=== PATIENT | female | born 1985 | race Caucasian/White ===

== ENCOUNTER → 2017-11-25 | Outpatient (CLI) | payer OTHER | END | disposition home or self-care (01) | LOC: MERGE 10:04 → CFH 10:04 | PROVIDERS: ATTEND Physician Assistant | DX: M25.511 Pain in right shoulder (principal) ==

== ENCOUNTER → 2018-05-01 | Outpatient (CLI) | payer OTHER ==
[2018-05-01 09:08] LABS: BASOPHILS # (AUTO) 0.02 x10^3/uL (0-0.1); BASOPHILS % (AUTO) 0 % (0-1); EOSINOPHILS # (AUTO) 0.04 x10^3/uL (0-0.4); EOSINOPHILS % (AUTO) 1 % (1-7); LYMPHOCYTES # (AUTO) 2.19 x10^3/uL (1-3.4); LYMPHOCYTES % (AUTO) 39 % (22-44); MD NO; MEAN CORPUSCULAR HEMOGLOBIN 29.5 pg (27.0-34.8); MEAN CORPUSCULAR HGB CONC 33.7 g/dL (32.4-35.8); MEAN CORPUSCULAR VOLUME 87.5 fL (80-100); MEAN PLATELET VOLUME 12.1 fL (7.4-10.4); MONOCYTES # (AUTO) 0.39 x10^3/uL (0.2-0.8); MONOCYTES % (AUTO) 7 % (2-9); NEUTROPHILS % (AUTO) 53 % (42-75); PLATELET COUNT 138 x10^3/uL (130-400); RED BLOOD COUNT 4.62 x10^6/uL (3.82-5.3); RED CELL DISTRIBUTION WIDTH 14.2 % (9.6-15.2)
[2018-05-01 09:26] LABS: ALANINE AMINOTRANSFERASE 19 U/L (12-78); ALBUMIN 3.8 g/dL (3.4-5.0); ANION GAP 6 mmol/L (5-15); CALCIUM 8.7 mg/dL (8.5-10.1); CHLORIDE 108 mmol/L (98-107); CHOLESTEROL, TOTAL 159 mg/dL (140-239); CREATININE 0.94 mg/dL (0.55-1.02); TRIGLYCERIDES 144 mg/dL (50-200); VLDL CHOLESTEROL 29 mg/dL (0-25)
[2018-05-01 09:28] LABS: ALKALINE PHOSPHATASE 56 U/L (45-117); BILIRUBIN,TOTAL 0.5 mg/dL (0.2-1.0); CHOL/HDL RATIO 2.4; HDL CHOL % 42 % (28-40); HDL CHOLESTEROL (DIRECT) 67 mg/dL (40-60); LDL CHOLESTEROL,CALCULATED 63 mg/dL (54-169); LDL/HDL RATIO 0.9 (0.5-3.0); TOTAL PROTEIN 7.5 g/dL (6.4-8.2)
== END | disposition home or self-care (01) ==
LOC: LAB 08:54
PROVIDERS: ATTEND Nurse Practitioner Family
DX: Z00.00 Encounter for general adult medical examination without abnormal findings (principal)
CPT/HCPCS: 36415; 80053; 80061; 82306; 85025

== ENCOUNTER → 2019-05-07 | Outpatient (CLI) | payer OTHER | END | disposition home or self-care (01) | LOC: CFH 16:04 | PROVIDERS: ATTEND Nurse Practitioner Family | DX: M54.16 Radiculopathy, lumbar region (principal); M54.5 Low back pain | CPT/HCPCS: 72148 ==

== ENCOUNTER → 2019-05-31 | Outpatient (CLI) | payer OTHER | END | disposition home or self-care (01) | LOC: LAB 10:08 | PROVIDERS: ATTEND Physician Assistant | DX: M24.151 Other articular cartilage disorders, right hip (principal) | CPT/HCPCS: 36415; 84703 ==

== ENCOUNTER → 2019-06-14 | Outpatient (CLI) | payer OTHER ==
[~2019-06-14] MED LIST: GADOTERATE 10 MMOL/20 ML VIAL ONE; LIDOCAINE-MPF 1%, 5ML ONE; OMNIPAQUE 300 MG/ML, 10ML VIAL ONE; ROPivacaine/PF 0.2%, 10 ML ONE
== END | disposition home or self-care (01) ==
LOC: RAD 07:37
PROVIDERS: ATTEND Physician Assistant
DX: M24.151 Other articular cartilage disorders, right hip (principal)
CPT/HCPCS: 73525; 73722; A9575; J2795; Q9967

== ENCOUNTER 2019-11-02 10:47 | Emergency (ER) | payer OTHER ==
[~2019-11-02] VITALS: Ht 167.6 cm; Wt 61.3 kg
[2019-11-02 10:49] VITALS: BP 145/87
--- NOTE | 2019-11-02 11:53 | NUR ---
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
--- NOTE | 2019-11-02 12:01 | NUR ---
PT C/O SKIN RASH X1 WEEK. RASH STARTED SMALL AND HAS PROGRESSIVELY INCREASED OVER TRUNK AND ARMS. PT USED NEW DETERGENT PRIOR, BUT HAS SINCE WASHED EVERYTHING AGAIN IN PREVIOUS DETERGENT. PT SEEN AT , PROVIDER AT DID NOT LOOK AT RASH, ONLY PRESCRIBED OINTMENT. AWAITING ORDERS.
--- NOTE | 2019-11-02 13:06 | NUR ---
PT RESTING COMFORTABLY ON RAIRELAINE. CANDELARION. AWAITING ORDERS AT THIS TIME.
--- NOTE | 2019-11-02 13:13 | NUR ---
AT BEDSIDE FOR ASSESSMENT.
[2019-11-02] MEDS ORDERED: FAMOTIDINE 20 MG TABLET PO ONE (13:30)
[2019-11-02] MEDS ORDERED: FAMOTIDINE 20 MG TABLET ONE (13:34)
--- NOTE | 2019-11-02 13:42 | NUR ---
MEDS ADMIN PER MAR
[2019-12-04] MEDS ORDERED: NONE PER PT (13:01)
== END 2019-11-02 13:55 | disposition home or self-care (01) ==
LOC: ED 11:30
DX: T78.40XA Allergy, unspecified, initial encounter (principal); R21 Rash and other nonspecific skin eruption; R20.0 Anesthesia of skin; X58.XXXA Exposure to other specified factors, initial encounter
CPT/HCPCS: 99283; J7512

== ENCOUNTER 2019-12-11 09:03 | Day surgery (SDC) | payer OTHER ==
[~2019-12-11] VITALS: Ht 167.6 cm; Wt 60.0 kg
[~2019-12-11 09:03] MED LIST changes: +EPINEPHRINE 1 MG/ML, 1ML ONE; -GADOTERATE 10 MMOL/20 ML VIAL ONE; -LIDOCAINE-MPF 1%, 5ML ONE; +NONE PER PT; -OMNIPAQUE 300 MG/ML, 10ML VIAL ONE; +ROPIvacaine/PF 0.5%, 30 ML ONE; -ROPivacaine/PF 0.2%, 10 ML ONE
[2019-12-11] MEDS ORDERED: LACTATED RINGERS 1,000 ML IV SCH (09:58)
[2019-12-11] MEDS ORDERED: SCOPOLAMINE 1MG PATCH TD SCH (10:00)
[2019-12-11] MEDS ORDERED: GABAPENTIN 300 MG CAPSULE PO ONE (10:00)
[2019-12-11] MEDS ORDERED: ACETAMINOPHEN 500 MG TABLET PO ONE (10:00)
[2019-12-11] MEDS ORDERED: CHLORHEXIDINE 15 ML UDC MM ONE (10:00)
[2019-12-11 10:02] VITALS: BP 116/76
[2019-12-11] MEDS ORDERED: MIDAZOLAM 1 MG/ML, 2ML ONE (10:02)
[2019-12-11] MEDS ORDERED: FENTANYL PF 250 MCG/5ML ONE ×2 (10:02→12:02)
[2019-12-11] MEDS ORDERED: GLYCOPYRROLATE 0.2MG/1ML, 5ML ONE (10:05)
[2019-12-11] MEDS ORDERED: CEFAZOLIN 1,000 MG ONE (10:05)
[2019-12-11] MEDS ORDERED: KETOROLAC 30 MG/1 ML ONE (10:05)
[2019-12-11] MEDS ORDERED: PROPOFOL 10 MG/ML, 20ML ONE (10:05)
[2019-12-11] MEDS ORDERED: NEOSTIGMINE 1 MG/ML, 10ML ONE (10:05)
[2019-12-11] MEDS ORDERED: DEXAMETHASONE 4 MG/ML, 1ML ONE (10:05)
[2019-12-11] MEDS ORDERED: ROCURONIUM 10MG/ML,5ML ONE (10:05)
[2019-12-11] MEDS ORDERED: ONDANSETRON 2MG/ML, 2ML ONE (10:05)
[2019-12-11 10:23] LABS: HCG UR SG 1.011 (1.003-1.030)
[2019-12-11] MEDS ORDERED: PROMETHAZINE 25 MG/ML, 1ML IVPush PRN (11:00)
[2019-12-11] MEDS ORDERED: MEPERIDINE/PF 25MG/0.5ML IVPush PRN (11:00)
[2019-12-11] MEDS ORDERED: LABETALOL 5MG/ML, 20ML IV PRN (11:00)
[2019-12-11] MEDS ORDERED: HYDROmorphone 1 MG/ML, 1ML INJ IVPush PRN (11:00)
[2019-12-11] MEDS ORDERED: HALOPERIDOL 5 MG/ML IV PRN (11:00)
[2019-12-11] MEDS ORDERED: morphine SULFATE 10 MG/ML, 1ML IVPush PRN (11:00)
[2019-12-11] MEDS ORDERED: hydrALAzine 20 MG/ML, 1ML IV PRN (11:00)
[2019-12-11] MEDS ORDERED: OXYcodone 5 MG/5 ML ORAL.SOL UDC ONE ×2 (13:08→13:27)
[2019-12-11] MEDS: OXYcodone 5 MG/5 ML ORAL.SOL UDC PO PRN ×2 (13:09→13:29)
[2019-12-11] MEDS ORDERED: FENTANYL PF 100 MCG/2ML ONE (13:21)
[2019-12-11] MEDS: FENTANYL PF 100 MCG/2ML IV PRN ×2 (13:23→13:29)
== END 2019-12-11 15:10 | disposition home or self-care (01) ==
LOC: OUT 09:03
PROVIDERS: ATTEND Orthopaedic Surgery
DX: M25.851 Other specified joint disorders, right hip (principal); Z11.59 Encounter for screening for other viral diseases; S73.191A Other sprain of right hip, initial encounter; M65.88 Other synovitis and tenosynovitis, other site; M94.251 Chondromalacia, right hip; M24.151 Other articular cartilage disorders, right hip; J45.909 Unspecified asthma, uncomplicated; X58.XXXA Exposure to other specified factors, initial encounter; Y93.89 Activity, other specified; Y92.89 Other specified places as the place of occurrence of the external cause; Y99.8 Other external cause status
CPT/HCPCS: 29914; 29916; 36415; 73501; 81025; 87635; J0171; J0690; J1100; J1885; J2250; J2405; J2704; J2710; J2795; J3010; J7120; 76000

== ENCOUNTER 2021-02-27 07:26 | Outpatient (CLI) | payer OTHER ==
[~2021-02-27 07:26] MED LIST changes: -EPINEPHRINE 1 MG/ML, 1ML ONE; -ROPIvacaine/PF 0.5%, 30 ML ONE
[2021-02-27 07:41] LABS: BASOPHILS % (AUTO) 0 % (0-1); EOSINOPHILS % (AUTO) 1 % (1-7); LYMPHOCYTES % (AUTO) 34 % (22-44); MEAN CORPUSCULAR HEMOGLOBIN 29.2 pg (27.0-34.8); MEAN CORPUSCULAR HGB CONC 33.9 g/dL (32.4-35.8); MEAN PLATELET VOLUME 10.1 fL (7.4-10.4); MONOCYTES % (AUTO) 7 % (2-9); NEUTROPHILS % (AUTO) 58 % (42-75); PLATELET COUNT 122 x10^3/uL (130-400); RED BLOOD COUNT 4.56 x10^6/uL (3.82-5.3); RED CELL DISTRIBUTION WIDTH 13.2 % (9.6-15.2)
[2021-02-27 07:53] LABS: ALANINE AMINOTRANSFERASE 20 U/L (12-78); ALBUMIN 3.4 g/dL (3.4-5.0); ANION GAP 5 mmol/L (5-15); CALCIUM 8.3 mg/dL (8.5-10.1); CHLORIDE 108 mmol/L (98-107); CHOLESTEROL, TOTAL 180 mg/dL (140-239); CREATININE 0.88 mg/dL (0.55-1.02)
[2021-02-27 07:54] LABS: ALKALINE PHOSPHATASE 55 U/L (45-117); BILIRUBIN,TOTAL 0.4 mg/dL (0.2-1.0); CHOL/HDL RATIO 2.4; HDL CHOL % 41 % (28-40); HDL CHOLESTEROL (DIRECT) 74 mg/dL (40-60); LDL CHOLESTEROL,CALCULATED 90 mg/dL (54-169); LDL/HDL RATIO 1.2 (0.5-3.0); TOTAL PROTEIN 7.3 g/dL (6.4-8.2); TRIGLYCERIDES 82 mg/dL (50-200); VLDL CHOLESTEROL 16 mg/dL (0-25)
== END 2021-02-27 23:59 | disposition home or self-care (01) ==
LOC: LAB 07:26
PROVIDERS: ATTEND Internal Medicine
DX: Z00.00 Encounter for general adult medical examination without abnormal findings (principal); E55.9 Vitamin D deficiency, unspecified
CPT/HCPCS: 36415; 80053; 80061; 82306; 85025